=== PATIENT | female | born 1980 | race Caucasian/White ===

== ENCOUNTER 2017-06-12 12:30 | Emergency (ER) | payer MEDICAID ==
[~2017-06-12] VITALS: Ht 147.3 cm; Wt 75.3 kg
[2017-06-12 13:07] VITALS: BP 124/44
[2017-06-12] MEDS ORDERED: TORADOL IM STA (13:39)
[2017-06-12] MEDS ORDERED: TORADOL ONE (13:43)
--- NOTE | 2017-06-12 13:44 | ER.PDOC ---
General Chief Complaint: Fever Stated Complaint: FEVER,SHORT OF BREATH,HEADACHE,ABD PAIN TRAVEL OUT OF US: No Time seen by MD: 13:42 Source: patient Exam Limitations: no limitations History of Present Illness Initial Comments Fever, cough, congestion, headache and left lower abdominal pain for 4 days Severity: moderate Associated Symptoms: cough, headaches Allergies: Coded Allergies: Sulfa (Sulfonamide Antibiotics) (Verified Allergy, Unknown, Anaphylaxis Shock, 06/12/17) Home Meds No Active Prescriptions or Reported Meds Past Medical History Medical History: asthma, diabetes Surgical History: cholecystectomy, LMP (females 10-50): last week Social History Smoking: non-smoker, quit less than 1 year Alcohol Use: none Drug Use: none Review of Systems Constitutional: see HPI EENTM: nose congestion Respiratory: cough Cardiovascular: no symptoms reported Gastrointestinal: abdominal pain Genitourinary: no symptoms reported Musculoskeletal: no symptoms reported Skin: no symptoms reported All Other Systems: Reviewed and Negative Physical Exam General Appearance: No Apparent Distress, Anxious EENT: other (nasal congestion) Neck: Non-Tender, Full Range of Motion, Supple Respiratory: chest non-tender, lungs clear, normal breath sounds, no respiratory distress CVS: reg rate & rhythm, no murmur, no gallop, pulses nml, nml capillary refill Gastrointestinal: Normal Bowel Sounds, No Organomegaly, No Pulsatile Mass, Tenderness (LLQ) Back: Normal Inspection, No CVA Tenderness Extremities: Normal Range of Motion 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/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 as Tested Skin: Normal Color Results/Orders Results/Orders Laboratory Tests Test 06/12/17 13:17 06/12/17 13:39 06/12/17 13:53 06/12/17 14:10 Influenza Type A Antigen NEGATIVE (NEG) Influenza B Immunofluorescence NEGATIVE (NEG) Group A Streptococcus Screen NEGATIVE (NEGATIVE) Urine HCG, Qualitative NEGATIVE (NEGATIVE) White Blood Count 8.3 10^3/uL (4.5-11.0) Red Blood Count 4.15 10^6/uL (4.00-5.20) Hemoglobin 12.4 g/dL (12.0-15.0) Hematocrit 36.7 % (36.0-46.0) Mean Corpuscular Volume 88.4 fL (78-100) Mean Corpuscular Hemoglobin 29.9 pg (26-34) Mean Corpuscular Hemoglobin Concent 33.8 g/dL (33-37) Red Cell Distribution Width 13.5 % (11.5-14.5) Platelet Count 265 10^3/uL (150-400) Mean Platelet Volume 9.5 fL (7.8-11.0) Neutrophils (%) (Auto) 79.0 % (41.0-85.0) Lymphocytes (%) (Auto) 12.6 % (24.0-44.0) Monocytes (%) (Auto) 7.8 % (5.0-12.0) Neutrophils # (Auto) 6.5 10^3/uL (1.8-7.7) Lymphocytes # (Auto) 1.0 10^3/uL (1.0-4.8) Monocytes # (Auto) 0.6 10^3/uL (0.3-0.8) Absolute Immature Granulocyte (auto 0.03 10^3 u/L (0-2) Eosinophils % 0.1 % (0.0-5.0) Basophils % 0.1 % (0.0-0.2) Basophils # 0.0 10^3/uL (0.0-0.1) Eosinophil Count 0.0 10^3/uL (0.0-0.2) Sodium Level 133 mmol/L (132-145) Potassium Level 4.0 mmol/L (3.6-5.2) Chloride Level 96.0 mmol/L (96-109) Carbon Dioxide Level 21.2 mmol/L (20.0-32) Anion Gap 19.8 Blood Urea Nitrogen 6 mg/dL (7-18) Creatinine 0.95 mg/dL (0.59-1.40) Estimated GFR () 80.1 (>/=60) BUN/Creatinine Ratio 6.0 Glucose Level 380 mg/dL (70-110) Calcium Level 9.1 mg/dL (8.4-10.5) Total Bilirubin 0.9 mg/dL (0.2-1.0) Aspartate Amino Transf (AST/SGOT) 43 U/L (0-35) Alanine Aminotransferase (ALT/SGPT) 72 U/L (12-78) Alkaline Phosphatase 97 U/L (50-136) Total Protein 8.3 g/dL (6.4-8.2) Albumin 3.1 g/dL (3.4-5.0) Globulin 5.2 Percent Immature Gran (Cell Imm) 0.40 % (0.00-0.50) Urine Collection Type VOID Urine Color YELLOW (YELLOW) Urine Appearance HAZY (CLEAR) Urine Bilirubin NEGATIVE MG/DL (NEGATIVE) Urine Ketones 150 mg/dL (NEGATIVE) Urine Specific [place] 1.010 (1.005-1.035) Urine pH 6 (5.0-6.0) Urine Protein 30 mg/dL (NEGATIVE) Urine Urobilinogen NORMAL (NEGATIVE) Urine Nitrate NEGATIVE (NEGATIVE) Urine Leukocyte Esterase NEGATIVE (NEGATIVE) Urine Blood 250 4+ (NEGATIVE) Urine RBC 0-2 RBC/HPF (NONE SEEN) Urine WBC 10-25 WBC/HPF (0-2) Urine Squamous Epithelial Cells MANY #/HPF (FEW) Urine Bacteria FEW (NONE SEEN) Urine Glucose 1000 (NEGATIVE) Administered Medications Medications (Trade) Dose Ordered Sig/Contreras Route PRN Reason Start Time Stop Time Status Last Admin Dose Admin Ketorolac Tromethamine (Toradol) 60 mg STAT STAT IM 06/12/17 13:39 06/12/17 13:42 DC 06/12/17 13:47 EKG/XRAY/CT/US CT Comments: 5mm Left ureteral calculus, Nothing acute on CT head Departure Time of Disposition: 15:20 Disposition: 01 HOME, SELF-CARE Impression: Primary Impression: Ureteral calculus, left Additional Impressions: UTI (urinary tract infection) Qualified Codes: N39.0 - Urinary tract infection, site not specified; R31.9 - Hematuria, unspecified URI, acute Condition: Stable Referrals: PCP,UNKNOWN (PCP) PRIMARY CARE PROVIDER Additional Instructions: Tylenol #3 Cipro Flomax F/U with your PCP in 2-3 days F/U with Dr. Casanova in 2-3 days Scripts No Active Prescriptions or Reported Meds Duration or Time Spent with Pa: 2 hours VELASQUEZ,DARIA Johnson MD Jun 12, 2017 13:44
[2017-06-12 13:49] LABS: STREP SCREEN NEGATIVE (NEGATIVE)
[2017-06-12 14:07] LABS: BASOPHIL % 0.1 % (0.0-0.2); EOSINOPHIL % 0.1 % (0.0-5.0); HEMOGLOBIN 12.4 g/dL (12.0-15.0); LYMPHOCYTES % 12.6 % (24.0-44.0); MEAN CELL HGB 29.9 pg (26-34); MEAN CELL HGB CONCENTRATION 33.8 g/dL (33-37); MEAN CORP VOLUME 88.4 fL (78-100); MEAN PLATELET VOLUME 9.5 fL (7.8-11.0); MONOCYTES # 0.6 10^3/uL (0.3-0.8); MONOCYTES % 7.8 % (5.0-12.0); NEUTROPHIL # 6.5 10^3/uL (1.8-7.7); RED CELL DISTRIBUTION WIDTH 13.5 % (11.5-14.5); WHITE BLOOD CELL 8.3 10^3/uL (4.5-11.0)
[2017-06-12 14:17] LABS: BILIRUBIN,URINE NEGATIVE (NEGATIVE); UROBILINOGEN,URINE NORMAL (NEGATIVE)
[2017-06-12 14:30] LABS: CALCIUM 9.1 mg/dL (8.4-10.5); CARBON DIOXIDE 21.2 mmol/L (20.0-32)
[2017-06-12 14:42] LABS: APPEARANCE,URINE HAZY (CLEAR); UA COLOR YELLOW (YELLOW)
--- NOTE | 2017-06-12 14:47 | DIREP ---
PROCEDURE:CT HEAD WITHOUT CONTRAST TECHNIQUE:Axial cuts were obtained through the head, without intravenous contrast material. The images were viewed at brain and bone settings. COMPARISON:None. INDICATIONS:Headache FINDINGS: VENTRICLES:Normal. CEREBRUM:Normal. CEREBELLUM:Normal. BRAINSTEM:Normal. SKULL:Normal. SINUSES:Normal. OTHER:A soft tissue densities noted in the right frontal scalp measuring 8 mm in diameter which may represent a sebaceous cyst. Please correlate with clinical exam. CONCLUSION: 1. CT scan of the brain appears normal. See above. Dictated by: Tino Mijares M.D. on 06/12/2017 at 02:44 PM
--- NOTE | 2017-06-12 14:51 | DIREP ---
PROCEDURE:CT ABDOMEN/PELVIS W/O CONTRAST COMPARISON:None. INDICATIONS:LLQ abdominal pain TECHNIQUE:Axial images were created through the abdomen and pelvis without intravenous contrast material. No oral contrast was administered. The lack of oral contrast limits assessment of the bowel Sagittal and coronal reconstructions were performed from source images. FINDINGS: LUNG BASES:Normal. No visible pulmonary or pleural disease. LIVER:Diffusely diminished hepatic attenuation consistent with hepatic steatosis. Hepatomegaly. BILIARY:The gallbladder is surgically absent. There is no biliary ductal dilatation. PANCREAS:Normal. No lesion, fluid collection, ductal dilatation, or atrophy. SPLEEN:Normal. No enlargement or focal lesion. ADRENALS:Normal. No mass or enlargement. URINARY TRACT:Mild left perinephric fat stranding and hydronephrosis with 5 mm obstructing stone at the left ureterovesicular junction. No right-sided hydroureter or hydronephrosis. AORTA/VASCULAR:Normal. No aneurysm. RETROPERITONEUM:Normal. No mass or adenopathy. BOWEL/MESENTERY:The appendix is visualized and appears normal. There is no intestinal obstruction, free fluid, free air or mesenteric inflammatory changes. ABDOMINAL WALL:Normal. No mass or hernia. PELVIC ORGANS:Normal. No visible mass. Pelvic organs appropriate for patient age. BONES:Normal for age. No bony lesion or acute fracture. OTHER:Negative. CONCLUSION: 1. Mild left hydronephrosis and hydroureter with 5 mm obstructing stone at the left ureterovesicular junction. 2. Hepatomegaly and hepatic steatosis. Dictated by: Rene Saavedra DO on 06/12/2017 at 02:44 PM
[2017-06-12 15:30] VITALS: BP 120/76
== END 2017-06-12 15:35 | disposition home or self-care (01) ==
LOC: ER 12:30
DX: J06.9 Acute upper respiratory infection, unspecified (principal); N39.0 Urinary tract infection, site not specified; N20.1 Calculus of ureter; J45.909 Unspecified asthma, uncomplicated; E11.9 Type 2 diabetes mellitus without complications; Z90.49 Acquired absence of other specified parts of digestive tract; Z87.891 Personal history of nicotine dependence; Z88.2 Allergy status to sulfonamides
CPT/HCPCS: 36415; 70450; 74176; 80053; 81000; 81025; 85025; 86710; 87070; 87077; 87086; 87186; 87880; 96372; 99285; J1885

== ENCOUNTER 2017-08-07 00:48 | Emergency (ER) | payer MEDICAID ==
[~2017-08-07] VITALS: Ht 144.8 cm; Wt 81.6 kg
[2017-08-07 01:07] VITALS: BP 130/89
[2017-08-07] MEDS ORDERED: PREDNISONE PO STA (01:08)
[2017-08-07] MEDS ORDERED: PEPCID PO STA (01:08)
[2017-08-07] MEDS ORDERED: PREDNISONE ONE (01:08)
[2017-08-07] MEDS ORDERED: PEPCID ONE (01:09)
[2017-08-07] MEDS ORDERED: EPINEPHRINE ONE ×2 (01:50→02:45)
--- NOTE | 2017-08-07 01:57 | NUR ---
EPI EPI 0.3ML GIVEN VIA VERBAL ORDER FROM DR. MEDEROS AT THIS TIME. GIVEN SQ IN RIGHT UPPER ARM.
[2017-08-07] MEDS ORDERED: EPINEPHRINE SQ STA ×2 (02:00→02:43)
[2017-08-07] MEDS ORDERED: NORCO 5MG PO STA (02:43)
[2017-08-07] MEDS ORDERED: NORCO 5MG PO ONE (02:45)
--- NOTE | 2017-08-07 03:06 | ER.PDOC ---
General Chief Complaint: Allergic Reaction Stated Complaint: SWELLING/REDNESS ON FACE Time seen by MD: 01:33 Source: patient Exam Limitations: no limitations History of Present Illness Initial Comments pt developed facial rash after taking chlorphenaramine Timing/Duration: 24 hours Severity: moderate Location: facial Identified Cause: no, possibly Allergies: Coded Allergies: Sulfa (Sulfonamide Antibiotics) (Verified Allergy, Unknown, Anaphylaxis Shock, 06/12/17) Home Meds No Active Prescriptions or Reported Meds Past Medical History Medical History: diabetes Surgical History: cholecystectomy, LMP (females 10-50): 1 month Social History Smoking: non-smoker, quit greater than 1 year Alcohol Use: rarely Drug Use: none Constitutional: no symptoms reported EENTM: see HPI Respiratory: no symptoms reported Cardiovascular: no symptoms reported Gastrointestinal: no symptoms reported Musculoskeletal: no symptoms reported Skin: see HPI, lesions, rash (facial nose and maxillary area) Physical Exam General Appearance: moderate distress Skin: warm/dry, tender indurated area (malar and nasla area) Location: face Character: symmetric, macular With: warmth, tenderness, swelling, induration, weeping Extremities: non-tender, nml ROM, no edema EENT: eyes nml inspection, lips/gums nml, pharynx nml Neck: trachea midline, no swelling Respiratory: no resp. distress, breath sounds nml CVS: reg. rate & rhythm, heart sounds nml Abdomen: non-tender, no organomegaly NEURO/PSYCH: oriented x 3, CN's nml as tested, motor nml, sensation nml, mood/ affect nml Results/Orders Results/Orders Administered Medications Medications (Trade) Dose Ordered Sig/Contreras Route PRN Reason Start Time Stop Time Status Last Admin Dose Admin Prednisone (Prednisone) 60 mg STAT STAT PO 08/07/17 01:08 08/07/17 01:10 DC 08/07/17 01:12 Famotidine (Pepcid) 20 mg STAT STAT PO 08/07/17 01:08 08/07/17 01:10 DC 08/07/17 01:11 Epinephrine HCl (Epinephrine) 0.3 mg STAT STAT SQ 08/07/17 02:00 08/07/17 02:02 DC 08/07/17 02:02 Progress Progress getting better response to epi, will dc with medrol dose pack, pepcid; follow up with PCP if symptoms fail to improve Departure Time of Disposition: 03:13 Disposition: 01 HOME, SELF-CARE Impression: Primary Impression: Angioedema Qualified Codes: T78.3XXA - Angioneurotic edema, initial encounter Condition: Improved Referrals: PCP,UNKNOWN (PCP) PRIMARY CARE PROVIDER Scripts No Active Prescriptions or Reported Meds Comments will DC with antibiotics, steroids, antihistamines, pain meds for probable angioedema Duration or Time Spent with Pa: 25 SOLOMON MEDEROS MD August 07, 2017 03:06
[2017-08-07 04:00] VITALS: BP 130/89
== END 2017-08-07 03:32 | disposition home or self-care (01) ==
LOC: ER 00:48
DX: T78.3XXA Angioneurotic edema, initial encounter (principal); E11.9 Type 2 diabetes mellitus without complications; Z88.2 Allergy status to sulfonamides; Z90.49 Acquired absence of other specified parts of digestive tract; Z87.891 Personal history of nicotine dependence
CPT/HCPCS: 96372 ×2; 99284; J0171 ×2; J7512

== ENCOUNTER 2017-09-22 15:07 | Emergency (ER) | payer MEDICAID, OTHER ==
[~2017-09-22] VITALS: Ht 149.9 cm; Wt 72.6 kg
[2017-09-22 15:26] VITALS: BP 160/85
[2017-09-22] MEDS ORDERED: SENSORCAINE-MPF 0.5% VIAL ONE (15:26)
--- NOTE | 2017-09-22 15:43 | ER.PDOC ---
General Chief Complaint: Toothache Stated Complaint: TOOTH ACHE TRAVEL OUT OF US: No Time seen by MD: 15:20 History of Present Illness Initial Comments Right upper molar toothache for several days gradually getting worse Severity: moderate Associated Symptoms: denies symptoms Allergies: Coded Allergies: Sulfa (Sulfonamide Antibiotics) (Verified Allergy, Unknown, Anaphylaxis Shock, 06/12/17) Home Meds No Active Prescriptions or Reported Meds Past Medical History Medical History: no pertinent history, diabetes Surgical History: cholecystectomy, Family History Significant Family History: no pertinent family hx Social History Smoking: non-smoker Alcohol Use: rarely Drug Use: none Review of Systems Constitutional: denies no symptoms reported, denies see HPI, denies chills, denies diaphoresis, denies fever, denies malaise, denies weakness, denies other Respiratory: denies no symptoms reported, denies see HPI, denies cough, denies orthopnea, denies shortness of breath, denies stridor, denies wheezing, denies other Cardiovascular: denies no symptoms reported, denies see HPI, denies chest pain , denies edema, denies palpitations, denies syncope, denies other Gastrointestinal: denies no symptoms reported, denies see HPI, denies abdominal pain, denies constipation, denies diarrhea, denies nausea, denies vomiting, denies other All Other Systems: Reviewed and Negative Physical Exam General Appearance: WD/WN, Anxious, Mild Distress EENT: eyes nml inspection, other (carious right upper back molar fractured down to gum; gum erythematous and edemtous; face is without swelling) Neck: Non-Tender, Full Range of Motion, Supple, Normal Inspection Respiratory: chest non-tender, lungs clear, normal breath sounds, no respiratory distress CVS: reg rate & rhythm, no murmur Extremities: Normal Range of Motion 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 NO complications; PT had complte relief of pain within 2 minutes. Departure Time of Disposition: 15:40 Disposition: 01 HOME, SELF-CARE Impression: Primary Impression: Periodontal abscess Condition: Stable Patient Instructions: Dental Abscess Referrals: SHAN LÓPEZ INTERNAL SECURITY MANAGER (PCP) PRIMARY CARE PROVIDER Additional Instructions: Rx -amoxicillin 500 mg po tid x 10 days ultram 50 mg 1-2 po q 6 prn pain #12 Scripts No Active Prescriptions or Reported Meds Comments See an oral surgeon within 5 days return to ER if worse Duration or Time Spent with Pa: 15 ARJUN BEAVERS MD Sep 22, 2017 15:43
[2017-09-22 16:03] VITALS: BP 160/85
== END 2017-09-22 15:57 | disposition home or self-care (01) ==
LOC: ER 15:07
DX: K05.219 Aggressive periodontitis, localized, unspecified severity (principal); Z88.2 Allergy status to sulfonamides; Z90.49 Acquired absence of other specified parts of digestive tract
CPT/HCPCS: 64400; 99284; J3490; 99283

== ENCOUNTER 2017-09-24 16:06 | Emergency (ER) | payer MEDICAID ==
[~2017-09-24] VITALS: Ht 149.9 cm; Wt 79.4 kg
[2017-09-24 16:20] VITALS: BP 126/83
--- NOTE | 2017-09-24 16:30 | ER.PDOC ---
General Chief Complaint: Toothache Stated Complaint: MOUTH PAIN Time seen by MD: 16:27 Source: patient Exam Limitations: no limitations History of Present Illness Initial Comments Mouth pain for past few days. Patient seen 2 days ago and currently taking Amoxil and Tramadol. Timing/Duration: gradual Associated Symptoms: toothache, swollen jaw Severity: moderate Prior symptoms/Treatment: Similar symptoms previous, Recenly Seen, Treated by Doctor Allergies: Coded Allergies: Sulfa (Sulfonamide Antibiotics) (Verified Allergy, Unknown, Anaphylaxis Shock, 06/12/17) Home Meds No Active Prescriptions or Reported Meds Past Medical History Surgical History: cholecystectomy, Social History Smoking: less than 1 pack/day Alcohol Use: none Drug Use: none Constitutional: no symptoms reported Mouth: see HPI Throat: no symptoms reported Respiratory: no symptoms reported Cardiovascular: no symptoms reported Gastrointestinal: no symptoms reported Musculoskeletal: no symptoms reported All Other Systems: Reviewed and Negative Physical Exam General Appearance: alert, no distress Head/Neck: head nml inspection, neck nml inspection, trachea midline, no lymphadenopathy, thyroid nml Eyes: eyes nml inspection Mouth: dental tenderness (right lower molar) Throat: pharynx nml, voice nml, no airway problems Ears/Nose: nml inspection Respiratory: no resp. distress, lungs clear CVS: reg. rate & rhythm, heart sounds nml Abdomen: non-tender, no organomegaly Extremities: non-tender, ROM nml Skin Exam: Normal Color, Warm/Dry NEURO/PSYCH: oriented X3, mood/effect nml Departure Time of Disposition: 16:28 Disposition: 01 HOME, SELF-CARE Impression: Primary Impression: Pain, dental Condition: Stable Referrals: SHAN LÓPEZ PRIME BROKER (PCP) PRIMARY CARE PROVIDER Additional Instructions: Continue current medications F/U with your Dentist tomorrow. Scripts No Active Prescriptions or Reported Meds Duration or Time Spent with Pa: 20 mins DARIA ENG MD Sep 24, 2017 16:30
[2017-09-24 16:33] VITALS: BP 126/83
== END 2017-09-24 16:35 | disposition home or self-care (01) ==
LOC: ER 16:06
DX: K08.89 Other specified disorders of teeth and supporting structures (principal); F17.210 Nicotine dependence, cigarettes, uncomplicated; Z88.2 Allergy status to sulfonamides; Z90.49 Acquired absence of other specified parts of digestive tract
CPT/HCPCS: 99281